=== PATIENT | male | born 1990 | race African-American/Black ===

== ENCOUNTER 2022-07-31 10:13 | Emergency (ER) | payer SELFPAY ==
[2022-07-31] MEDS ORDERED: Sodium Chloride 0.9% 1,000 ML IV ONE (11:57)
[2022-07-31 13:20] LABS: CARBON DIOXIDE,CO2 27.7 mmol/L (21.0-32.0)
== END 2022-07-31 14:10 | disposition home or self-care (01) ==
LOC: MW.ED 10:13
DX: R53.83 Other fatigue (principal)
CPT/HCPCS: 36415; 71045; 80053; 84484; 85025; 93005; 96360; 99284; J7030

== ENCOUNTER 2023-02-04 12:45 | Emergency (ER) | payer SELFPAY ==
[2023-02-04] MEDS ORDERED: Ibuprofen 600 MG Tab PO ONE (13:11)
== END 2023-02-04 13:45 | disposition home or self-care (01) ==
LOC: MW.ED 12:45
DX: S63.501A Unspecified sprain of right wrist, initial encounter (principal); W54.8XXA Other contact with dog, initial encounter
CPT/HCPCS: 73110; 99283; A9270